=== PATIENT | male | born 1965 | race Caucasian/White ===

== ENCOUNTER 2017-02-11 14:52 | Inpatient (IN) | payer BC ==
--- NOTE | ~2017-02-11 | HP ---
History And Physical [place] [id number] [facility] [place]. [address] NAME: WADE BRUNO : 69 STATUS : ADM IN PAT#: [id number] AGE: 51 ADM/REG DATE : 02/11/17 MR#: [id number] REPORT SERV DATE: 02/12/17 DICTATED BY: HECTOR HERNANDEZ DATE: 02/11/17 REPORT STATUS : Draft TRANSCRIBED BY: MODL DATE: 02/11/17 DATE OF ADMISSION: 02/11/2017 REASON FOR ADMISSION: Hyperglycemia. HISTORY OF PRESENT ILLNESS: This is a pleasant 51-year-old obese male. He has a known history of hypertension, insulin-dependent diabetes, very uncontrolled, typically is recently in the 200 to 400 range. He even gets hypoglycemic and symptoms with a sugar less than 120, but more than 70; chronic pain; anxiety; migraine headaches; smokeless tobacco use, history of "caffeine indiscretion;" history of nephrolithiasis. SURGICAL HISTORY: Vasectomy, knee surgery, hernia repair, shoulder surgery, bilateral arm repair unclear. The patient comes in after being recently placed on NovoLog for increasing hyperglycemia, has had a two-day episode of increasing blurry vision, the sugar well over 500. Comes in here with a blood glucose of 603 on BMP, immediately was given 10 of IV insulin, sugar recheck thereafter is 355 with a normal saline at 200 mL an hour, after 500 mL bolus. The patient denies any fevers or chills. No nausea, no vomiting, no diarrhea, no chest pain, no shortness of breath. Positive blurry vision. REVIEW OF SYSTEMS: Done, see HPI. Otherwise, negative. PAST MEDICAL HISTORY: See above. PAST SURGICAL HISTORY: See above. ALLERGIES: NO KNOWN DRUG ALLERGIES. SOCIAL: Social alcohol use. No drug use. No tobacco use. PULMONARY HISTORY: Smokeless tobacco use. HOME MEDICATIONS: See MAR. Continue what is relevant as well. FAMILY HISTORY: Hypertension, at least one parent. OBJECTIVE: VITAL SIGNS: He was 199 systolic, now is 140; 112 pulse, now it is 90; 18 respirations; 98% on room air. Afebrile, temp 97.4. GENERAL: Guarded. HEENT: PERRLA. No scleral icterus. CARDIOVASCULAR: Regular rate and rhythm. No murmur. RESPIRATORY: Decreased breath sounds bibasilarly. ABDOMEN: Nontender, nondistended. Positive bowel sounds. History And Physical [address] [address] NAME: WADE BRUNO : 69 STATUS : ADM IN PAT#: [id number] AGE: 51 ADM/REG DATE : 02/11/17 MR#: [id number] REPORT SERV DATE: 02/12/17 DICTATED BY: HECTOR HERNANDEZ DATE: 02/11/17 REPORT STATUS : Draft TRANSCRIBED BY: MODL DATE: 02/11/17 EXTREMITIES: No edema. No ecchymosis. NEURO: GCS 15. A and O x4/4. LABORATORY DATA: His white count is 10.8, 15.2 hemoglobin, 318,000 platelets, 4.7 potassium, 20 bicarb, 1.66 creatinine unclear baseline, 603 sugar, after which 355 on Accu-Chek, 34 BUN, 129 sodium. Troponin is negative. We will get urinalysis, it is going to be pending for source of significant hyperglycemia and as a result, blood cultures will also be pending. CT of the brain will also be pending. EKG, he has got normal sinus rhythm. No ischemic ST-T changes. ASSESSMENT: 1. Very uncontrolled insulin-dependent diabetes, almost diabetic ketoacidosis. Would like to get an ABG or acid-base status as he has a very mild bicarb reduction to suggest acidosis. 2. Hypertensive urgency. 3. Blurry vision possibly associated with hypertensive emergency. PLAN: I will go ahead and admit this patient myself. I will place on insulin drip. Already have orders on board for which will be half-normal saline with an amp of bicarb at 125, volume repletion given borderline DKA. Get an ABG regarding acid-base status. We will also place on IV p.r.n. antihypertensives, carvedilol at this time will be given. A CT of the abdomen and pelvis regarding TABITHA. Once the sugars are less than 250 persistently for 3 hours, I will go ahead and transition the drip to subcutaneous insulin and start him on a diabetic diet. He is seen in the morning, in the interval place on D5 half normal if that were to occur. Panculture regarding SIRS criteria and etiology of significant hyperglycemia if not just progressive diabetes. See rest of my orders. All questions were answered. It took well over 60 minutes to do. Reference [facility] and [facility]. We will get CT of the brain regarding this blurry vision, but may need to have an banquet coordinator to evaluate for possible diabetic-associated retinopathy. WST/MODL Hector Hernandez DO / [id number] CC: DO Vinicio Gonzalez M.D.
--- NOTE | ~2017-02-11 | DS ---
Discharge Summary [facility] [address] [place]. [address] NAME: WADE BRUNO : 69 STATUS : DIS IN PAT#: [id number] AGE: 51 ADM/REG DATE : 02/11/17 MR#: [id number] REPORT SERV DATE: 02/15/17 DICTATED BY: ALEX LEMUS DATE: 02/14/17 REPORT STATUS : Draft TRANSCRIBED BY: MODL DATE: 02/14/17 ADMISSION DATE: 02/11/2017 DISCHARGE DATE: 02/14/2017 CONDITION ON DISCHARGE: Stable. DISPOSITION: Discharged to home. ADVICE ON DISCHARGE: To follow up with PCP within the next one-to-two weeks for uncontrolled diabetes mellitus. DIAGNOSES ON DISCHARGE: 1. Diabetes mellitus-insulin requiring. The patient does have brittle diabetes mellitus and other diagnoses that are stable and chronic, include chronic back pain, generalized anxiety disorder, and chronic migraine headaches. 2. Smokeless tobacco use. 3. History of nephrolithiasis. BRIEF HOSPITAL COURSE: The patient is a 51-year-old male patient, who was admitted with signs and symptoms as outlined in history and physical exam. The patient also was diagnosed with high blood pressure and hypertensive urgency when he came in. The patient also had blurry vision associated with hypertensive emergency and hence he was admitted with this and also uncontrolled diabetes mellitus with an A1c that came back more than 10. The patient was given IV fluids and rehydrated for the hyperosmolar hyperglycemic state, and also his blood pressure was controlled by starting him on appropriate antihypertensive medications. With this, his symptoms gradually resolved and on 02/14/2017, he insists on being discharged home, he says. He says that he feels great and is completely asymptomatic. He is able to eat his food without any nausea or vomiting. Able to ambulate without any assistance and has had a bowel movement and no problems with any urination and hence he is being discharged to home with all the home medications that will be resumed. The patient states that he has every prescription with him and he just has to go fill it. He states that he does not need any more prescriptions from me. Hence, he is being sent home on the following home medications and these include the followin. Carvedilol 6.25 mg p.o. b.i.d. 2. [place] 10/325 one p.o. four times a day p.r.n. for back pain. 3. Lopid 600 mg p.o. b.i.d. 4. Cozaar 100 mg once a day. 5. NovoLog 10 units subcutaneously with lunch. 6. Tresiba insulin 26 units subcutaneously once a day. 7. Viagra 100 mg p.o. daily p.r.n. for sexual activity. 8. Victoza 1.8 mg subcutaneously daily. 9. Lipitor 80 mg p.o. daily which is the only new medication. I have given him a prescription for Lipitor 80 mg once a day and all the other medications the patient already has with him and states that he does not need any refills. Hence, he is being sent home in stable condition after blood pressure has been controlled and diabetes Discharge Summary [address] [place]. [address] NAME: WADE BRUNO : 69 STATUS : DIS IN PAT#: [id number] AGE: 51 ADM/REG DATE : 02/11/17 MR#: [id number] REPORT SERV DATE: 02/15/17 DICTATED BY: ALEX LEMUS DATE: 02/14/17 REPORT STATUS : Draft TRANSCRIBED BY: SREEDHAR DATE: 02/14/17 has been brought under fairly good control. I have the following most recent lab results on this gentleman: CBC on the day of discharge shows a WBC of 9.1, hemoglobin 14.1, hematocrit 41.1, and platelets of 266. Electrolyte profile shows a sodium of 138, potassium 4.1, BUN 16, and creatinine 1.32. Hemoglobin A1c came back at 11.7, reflecting uncontrolled diabetes mellitus. The patient understands this and states that he will definitely adapt lifestyle changes and also try to take his medications as prescribed after getting it filled. Blood cultures during hospitalization showed no growth. Initially the patient also had a CT scan of the abdomen without contrast as the patient complained of some vague abdominal symptoms. Essentially CT scan of the abdomen showed hepatomegaly, probably fatty infiltration of the liver because of the morbid obesity that the patient has, and also bilateral multiple nonobstructing renal stones consistent with the history. Other than that, there is no mass lesion, adenopathy, or any inflammatory processes that was seen in the abdomen or pelvic area. A CT scan of the brain was obtained also as the patient appeared a little confused and this did not show any evidence of any acute abnormality or any acute stroke. The CT scan of the brain was probably also obtained because the patient complained of blurry vision and had hypertensive urgency upon admission, but essentially it was normal. The patient's procalcitonin was normal. His BNP or brain natriuretic peptide was normal, and chest x-ray showed old granulomatous disease but no acute cardiopulmonary abnormalities. Hence, he is being discharged home in stable condition on the following medications as described above and I have spent about 40 minutes in coordinating discharge care of this patient including [id number] encounter and summarizing this discharge. RRA/MODL Alex Lemus M.D. / [id number] CC: Jose Alvarado M.D.
[~2017-02-11 14:52] MED LIST: CELEXA40 MG PO; CIP2 PO; CIP5 PO; COREG6 PO; CRESTOR20 MG PO; DIOVAN40 MG PO; LOPID6 PO; MEP50TAB PO; NORCO1 TAB PO; PERCOCET1 TA2 PO; PERCOCET1 TA4 PO; PR25 PO; PT DENIES HOME MEDS; PYR200 PO; ROLAIDS PO; TESTOSTERONE INJ IM; TYLENOL PM PO; ZYDONE1 TA2 PO
[2017-02-11 15:36] LABS: BASOPHILS 0.4 %; BASOPHILS ABSOLUTE 0.04 10/3/uL (0.0-0.16); EOSINOPHILS 3.4 %; EOSINOPHILS ABSOLUTE 0.37 10/3/uL (0.0-0.53); ER CBC TAT 0 Hrs 05 Mins; HEMATOCRIT 43.3 % (40.0-51.0); HEMOGLOBIN 15.2 g/dL (13.6-17.8); IMMATURE GRANULOCYTES 1.8 %; IMMATURE GRANULOCYTES ABSOLUTE 0.19 10/3/uL (0.0-0.11); LYMPHOCYTES 17.9 %; LYMPHOCYTES ABSOLUTE 1.94 10/3/uL (0.67-4.30); MEAN CORPUS HGB CONC 35.1 g/dL (32.0-36.0); MEAN CORPUSCULAR HEMOGLOB 31.7 pg (26.0-34.0); MEAN CORPUSCULAR VOLUME 90.2 fL (80-100); MEAN PLATELET VOLUME 10.2 fL (9.2-13.0); MONOCYTES 7.8 %; MONOCYTES ABSOLUTE 0.84 10/3/uL (0.21-1.20); NEUTROPHILS 68.7 %; NEUTROPHILS ABSOLUTE 7.43 10/3/uL (2.02-8.40); PLATELET COUNT 318 10/3/uL (150-400); RBC DISTRIBUTION WIDTH 13.2 % (12.0-16.0); WHITE BLOOD CELLS 10.8 10/3/uL (4.5-10.5)
[2017-02-11 15:37] LABS: MANUAL DIFF NO %
[2017-02-11 15:43] LABS: PARTIAL THROMBO TIME 28.6 SEC (22.5-37.2); PROTIME (NOT ORD) 13.1 SEC (12.0-14.5)
[2017-02-11 15:52] LABS: BUN (BLOOD UREA NITROGEN) 34 MG/DL (6-23); CALCIUM, SERUM 8.6 MG/DL (8.5-10.4); CHEST PAIN PROFILE TAT 0 Hrs 21 Mins; CHLORIDE, SERUM 93 MMOL/L (96-112); CO2 (CARBON DIOXIDE) 22 MMOL/L (24-34); CREATININE 1.66 MG/DL (0.70-1.30); GFR AFRICAN AMERICAN 55 ML/MIN (>=60); GFR NON AFRICAN AMERICAN 48 ML/MIN (>=60); POTASSIUM, SERUM 4.7 MMOL/L (3.5-5.3); SODIUM, SERUM 129 MMOL/L (135-148); TROPONIN I <0.02 NG/ML (<0.05)
[2017-02-11 15:56] LABS: GLUCOSE, SERUM 603 MG/DL (60-99)
[2017-02-11 17:34] LABS: ASCORBIC ACID (UR NOT ORDER) NEG (NEG); BILIRUBIN, URINE NEGATIVE (NEG); ER URINALYSIS TAT 0 Hrs 12 Mins; KETONE, URINE NEGATIVE (NEG); LEUKOCYTE ESTERASE(NOT OR NEG (NEG); NITRITE (URINE) NEG (NEG); WBC (NOT ORDERED) (RFLEX) 1 (0-5)
[2017-02-11] MEDS ORDERED: COREG6 PO (17:44)
[2017-02-11] MEDS ORDERED: COZAAR100 MG PO (17:45)
[2017-02-11] MEDS ORDERED: LOPID6 PO (17:45)
[2017-02-11] MEDS ORDERED: NORCO1 TAB PO (17:45)
[2017-02-11] MEDS ORDERED: NOVOLOG SC (17:46)
[2017-02-11] MEDS ORDERED: TRESIBA FL100 UNIT/1 SC (17:46)
[2017-02-11] MEDS ORDERED: VICTOZA18 MG/3 ML SC (17:47)
[2017-02-11] MEDS ORDERED: VIAGRA100 MG PO (17:47)
[2017-02-11 17:59] LABS: BE (BASE EXCESS) -2.9 MEQ/L (0 +/- 2.5); CARBOXYHEMOGLOBIN 1.1 % (0-3); HCO3 (ACTUAL BICARBONATE) 20.6 MEQ/L (23-27); HEMOBLOGIN CONTENT 15.2 G/DL (14-18); INSTRUMENT SERIAL # 8087; METHEMOGLOBIN 0.3 % (0-3); O2 CONTENT 20.4 VOL% (18-24); PCO2 (CO2 TENSION) 33 MMHG (35-45); PO2 (O2 TENSION) 88 MMHG (79-93); pH 7.42 (7.37-7.43)
[2017-02-11 18:00] LABS: ALLENS TEST Pos; SAMPLE Arterial
[2017-02-11 21:34] LABS: BASOPHILS 0.7 %; BASOPHILS ABSOLUTE 0.08 10/3/uL (0.0-0.16); EOSINOPHILS 4.4 %; EOSINOPHILS ABSOLUTE 0.48 10/3/uL (0.0-0.53); HEMATOCRIT 43.9 % (40.0-51.0); HEMOGLOBIN 15.3 g/dL (13.6-17.8); IMMATURE GRANULOCYTES 2.2 %; IMMATURE GRANULOCYTES ABSOLUTE 0.24 10/3/uL (0.0-0.11); LYMPHOCYTES 26.2 %; LYMPHOCYTES ABSOLUTE 2.89 10/3/uL (0.67-4.30); MANUAL DIFF NO %; MEAN CORPUS HGB CONC 34.9 g/dL (32.0-36.0); MEAN CORPUSCULAR HEMOGLOB 31.2 pg (26.0-34.0); MEAN CORPUSCULAR VOLUME 89.6 fL (80-100); MEAN PLATELET VOLUME 9.7 fL (9.2-13.0); MONOCYTES 8.9 %; MONOCYTES ABSOLUTE 0.98 10/3/uL (0.21-1.20); NEUTROPHILS 57.6 %; NEUTROPHILS ABSOLUTE 6.34 10/3/uL (2.02-8.40); PLATELET COUNT 286 10/3/uL (150-400); RBC DISTRIBUTION WIDTH 13.3 % (12.0-16.0)
[2017-02-11 22:01] LABS: PHOSPHORUS, SERUM 3.9 MG/DL (2.5-4.5)
[2017-02-11 22:03] LABS: PROCALCITONIN 0.27 ng/mL (<0.5); ULTRASENSITIVE TSH 1.15 MCIU/ML (0.358-3.740)
[2017-02-12 06:43] LABS: HEMATOCRIT 41.5 % (40.0-51.0); HEMOGLOBIN 14.3 g/dL (13.6-17.8); MEAN CORPUS HGB CONC 34.5 g/dL (32.0-36.0); MEAN CORPUSCULAR HEMOGLOB 31.2 pg (26.0-34.0); MEAN CORPUSCULAR VOLUME 90.4 fL (80-100); MEAN PLATELET VOLUME 10.2 fL (9.2-13.0); PLATELET COUNT 277 10/3/uL (150-400); RBC DISTRIBUTION WIDTH 13.8 % (12.0-16.0); RED CELL COUNT 4.59 10/6/uL (4.7-6.1); WHITE BLOOD CELLS 10.4 10/3/uL (4.5-10.5)
[2017-02-12 06:45] LABS: MANUAL DIFF YES %
[2017-02-12 06:54] LABS: CALCIUM, SERUM 9.1 MG/DL (8.5-10.4); CHLORIDE, SERUM 102 MMOL/L (96-112); CREATININE 1.23 MG/DL (0.70-1.30); GFR AFRICAN AMERICAN 79 ML/MIN (>=60); GFR NON AFRICAN AMERICAN 69 ML/MIN (>=60); PHOSPHORUS, SERUM 3.9 MG/DL (2.5-4.5); POTASSIUM, SERUM 3.8 MMOL/L (3.5-5.3)
[2017-02-12 06:55] LABS: BUN (BLOOD UREA NITROGEN) 24 MG/DL (6-23); CO2 (CARBON DIOXIDE) 27 MMOL/L (24-34); GLUCOSE, SERUM 213 MG/DL (60-99); SODIUM, SERUM 138 MMOL/L (135-148)
[2017-02-12 07:36] LABS: BAND NEUTROPHILS 1 %; EOSINOPHILS 2 %; EOSINOPHILS ABSOLUTE (CALC) 0.21 10/3/uL (0.0-0.53); LYMPHOCYTES 25 %; MONOCYTES 11 %; MONOCYTES ABSOLUTE (CALC) 1.14 10/3/uL (0.21-1.20); NEUTROPHILS ABSOLUTE (CALC) 6.45 10/3/uL (2.02-8.40); PLATELET ESTIMATE ADQ (ADEQUATE); RBC MORPHOLOGY NORM (NORMAL); SEGMENTED NEUTROPHIL (0) 61 %; TOTAL NUCLEATED CELLS 100
[2017-02-13 06:28] LABS: CHLORIDE, SERUM 100 MMOL/L (96-112); CO2 (CARBON DIOXIDE) 27 MMOL/L (24-34); GFR AFRICAN AMERICAN 102 ML/MIN (>=60); GFR NON AFRICAN AMERICAN 88 ML/MIN (>=60); GLUCOSE, SERUM 176 MG/DL (60-99); MEAN CORPUS HGB CONC 34.9 g/dL (32.0-36.0); MEAN CORPUSCULAR HEMOGLOB 31.7 pg (26.0-34.0); MEAN CORPUSCULAR VOLUME 90.8 fL (80-100); MEAN PLATELET VOLUME 9.7 fL (9.2-13.0); PHOSPHORUS, SERUM 3.2 MG/DL (2.5-4.5); PLATELET COUNT 209 10/3/uL (150-400); POTASSIUM, SERUM 3.6 MMOL/L (3.5-5.3); RBC DISTRIBUTION WIDTH 13.5 % (12.0-16.0); SODIUM, SERUM 136 MMOL/L (135-148); WHITE BLOOD CELLS 6.7 10/3/uL (4.5-10.5)
[2017-02-13 06:32] LABS: BUN (BLOOD UREA NITROGEN) 17 MG/DL (6-23); CALCIUM, SERUM 7.3 MG/DL (8.5-10.4)
[2017-02-13 06:51] LABS: HEMATOCRIT 30.7 % (40.0-51.0); HEMOGLOBIN 10.7 g/dL (13.6-17.8); MANUAL DIFF YES %; RED CELL COUNT 3.38 10/6/uL (4.7-6.1)
[2017-02-13 07:50] LABS: EOSINOPHILS 3 %; IMMATURE GRANS ABSOLUTE (CALC) 0.13 10/3/uL (0.0-0.11); LYMPHOCYTES 20 %; LYMPHOCYTES ABSOLUTE (CALC) 1.34 10/3/uL (0.67-4.30); METAMYELOCYTES 2 %; MONOCYTES 4 %; MONOCYTES ABSOLUTE (CALC) 0.27 10/3/uL (0.21-1.20); NEUTROPHILS ABSOLUTE (CALC) 4.76 10/3/uL (2.02-8.40); PLATELET ESTIMATE ADQ (ADEQUATE); RBC MORPHOLOGY NORM (NORMAL); SEGMENTED NEUTROPHIL (0) 71 %; TOTAL NUCLEATED CELLS 100
[2017-02-14 06:08] LABS: BASOPHILS 0.3 %; BASOPHILS ABSOLUTE 0.03 10/3/uL (0.0-0.16); EOSINOPHILS 4.5 %; EOSINOPHILS ABSOLUTE 0.41 10/3/uL (0.0-0.53); IMMATURE GRANULOCYTES 1.8 %; IMMATURE GRANULOCYTES ABSOLUTE 0.16 10/3/uL (0.0-0.11); LYMPHOCYTES 24.7 %; LYMPHOCYTES ABSOLUTE 2.24 10/3/uL (0.67-4.30); MEAN CORPUS HGB CONC 34.3 g/dL (32.0-36.0); MEAN CORPUSCULAR HEMOGLOB 31.3 pg (26.0-34.0); MEAN CORPUSCULAR VOLUME 91.3 fL (80-100); MEAN PLATELET VOLUME 10.2 fL (9.2-13.0); MONOCYTES 9.9 %; NEUTROPHILS 58.8 %; NEUTROPHILS ABSOLUTE 5.32 10/3/uL (2.02-8.40); PLATELET COUNT 266 10/3/uL (150-400); RBC DISTRIBUTION WIDTH 13.5 % (12.0-16.0); WHITE BLOOD CELLS 9.1 10/3/uL (4.5-10.5)
[2017-02-14 06:09] LABS: HEMATOCRIT 41.1 % (40.0-51.0); HEMOGLOBIN 14.1 g/dL (13.6-17.8); MANUAL DIFF NO %
[2017-02-14 06:24] LABS: BUN (BLOOD UREA NITROGEN) 16 MG/DL (6-23); CALCIUM, SERUM 8.7 MG/DL (8.5-10.4); CHLORIDE, SERUM 104 MMOL/L (96-112); CO2 (CARBON DIOXIDE) 25 MMOL/L (24-34); CREATININE 1.32 MG/DL (0.70-1.30); GFR AFRICAN AMERICAN 73 ML/MIN (>=60); GFR NON AFRICAN AMERICAN 63 ML/MIN (>=60); GLUCOSE, SERUM 248 MG/DL (60-99); PHOSPHORUS, SERUM 3.8 MG/DL (2.5-4.5); POTASSIUM, SERUM 4.1 MMOL/L (3.5-5.3); SODIUM, SERUM 138 MMOL/L (135-148)
[2017-02-14] MEDS ORDERED: CRESTOR40 MG PO (10:00)
== END 2017-02-14 10:59 | disposition home or self-care (01) | DRG 638 ==
LOC: ER 14:52 → 6NO 17:12
PROVIDERS: Emergency Medicine; Internal Medicine
DX: E11.00 Type 2 diabetes mellitus with hyperosmolarity without nonketotic hyperglycemic-hyperosmolar coma (NKHHC) (principal); N17.9 Acute kidney failure, unspecified; E11.649 Type 2 diabetes mellitus with hypoglycemia without coma; I16.1 Hypertensive emergency; F17.290 Nicotine dependence, other tobacco product, uncomplicated; Z87.442 Personal history of urinary calculi; I16.0 Hypertensive urgency; G89.29 Other chronic pain; Z79.4 Long term (current) use of insulin; Z82.49 Family history of ischemic heart disease and other diseases of the circulatory system; Z88.0 Allergy status to penicillin; F41.9 Anxiety disorder, unspecified; E66.9 Obesity, unspecified; Z68.36 Body mass index [BMI] 36.0-36.9, adult
CPT/HCPCS: 36600; 70450; 71010; 74176; 80048; 81001; 82805; 82962; 83036; 83735; 83880; 84100; 84145; 84443; 84484; 85025; 85610; 85730; 87040; 87449; 93005; 96374; 99285; A9270-GY; J1170

== ENCOUNTER 2017-02-21 14:29 | Inpatient (IN) | payer BC ==
--- NOTE | ~2017-02-21 | HP ---
History And Physical [place] [address] [facility] [place]. [address] NAME: WADE BRUNO : 69 STATUS : ADM IN PAT#: [id number] AGE: 51 ADM/REG DATE : 02/21/17 MR#: [id number] REPORT SERV DATE: 02/21/17 DICTATED BY: DIMA MORAES DATE: 02/21/17 REPORT STATUS : Draft TRANSCRIBED BY: MODL DATE: 02/21/17 DATE OF ADMISSION: 02/21/2017 CHIEF COMPLAINT: Elevated blood sugar. HISTORY OF PRESENT ILLNESS: The patient is a 51-year-old male. He was here recently from 02/12/2017, to 02/15/2017, for elevated blood sugar. He was placed back on his previous medications which were Tresiba, NovoLog with lunch, and he was told to hold his Victoza. He continued to have elevated blood sugars on his followup appointment with his PCP today, it was over 500 in the office, he was sent here for evaluation and treatment. He states that he has had no significant change in his activity, change in his diet, change in his status since his last hospitalization, symptoms he has been complaining mostly of blurred vision. He has seen a primary special educator. He feels he is doing reasonably well with his diet. He just feels his insulin needs to be more consistent through the day to fully cover his intake through the day which certainly seems reasonable. PAST MEDICAL HISTORY: Also significant for hypertension and recurrent kidney stones. He has a history of chronic pain and anxiety also. PAST SURGICAL HISTORY: Vasectomy, knee surgery, hernia repair, shoulder surgery, and bilateral arm repair. CURRENT MEDICATIONS: Pharmacy list is pending at discharge. He was on Coreg 6.25 b.i.d., [place] 10/325 q.i.d., Lopid 600 b.i.d., Cozaar 100, NovoLog Pen with lunch, Tresiba 26 daily, Viagra 100, Victoza 1.8, and Lipitor 80. ALLERGIES: NONE. FAMILY HISTORY: A parent with hypertension. SOCIAL HISTORY: Social alcohol. No tobacco. REVIEW OF SYSTEMS: HEENT: Positive for blurred vision. CARDIOVASCULAR: No chest pain or palpitations. PULMONARY: No shortness of breath. GI: No nausea or vomiting. : No dysuria, frequency, or urgency. NEUROMUSCULOSKELETAL: Positive for his chronic pain, otherwise 14-point review of systems is negative. PHYSICAL EXAMINATION: VITAL SIGNS: Currently pending. His blood sugar was 347 by fingerstick. GENERAL: He is awake, alert, and oriented. HEENT: Normocephalic, atraumatic. Sclerae nonicteric. NECK: Supple. HEART: Regular rate and rhythm. No murmurs, gallops, or rubs. LUNGS: Clear to auscultation without rhonchi, rales, or wheezes. History And Physical [address] [address] NAME: WADE BRUNO : 69 STATUS : ADM IN [facility]#: [id number] AGE: 51 ADM/REG DATE : 02/21/17 MR#: [id number] REPORT SERV DATE: 02/21/17 DICTATED BY: DIMA MORAES DATE: 02/21/17 REPORT STATUS : Draft TRANSCRIBED BY: MODL DATE: 02/21/17 ABDOMEN: Obese. Benign. EXTREMITIES: No significant clubbing, cyanosis, or edema. No significant clubbing, cyanosis, or edema. NEUROLOGIC: Grossly nonfocal. LAB: None to review. ASSESSMENT: 1. Diabetes with suspected hyperglycemia. 2. Hypertension. 3. Chronic medical problems listed above. PLAN: The patient has been admitted. We will check a BMP to note electrolytes and bicarb and to rule out any DKA. We will await his blood pressure numbers as apparently it was somewhat hypertensive on presentation. We will review his pharmacy list when available. I do believe the patient will need sliding scale insulin more than once per day. We will initiate that here. Further recommendations pending his labs and vitals. TLF/MODL Dima Moraes M.D. / [id number] CC: Jose Hester M.D.
--- NOTE | ~2017-02-21 | DS ---
Discharge Summary [facility] [address] [place]. [address] NAME: WADE BRUNO : 69 STATUS : ADM IN PAT#: [id number] AGE: 51 ADM/REG DATE : 02/21/17 MR#: [id number] REPORT SERV DATE: 02/22/17 DICTATED BY: RADHA MORAES DATE: 02/22/17 REPORT STATUS : Draft TRANSCRIBED BY: MODL DATE: 02/22/17 ADMISSION DATE: 02/21/2017 DISCHARGE DATE: 02/22/2017 FINAL HOSPITAL DIAGNOSES: 1. Elevated blood sugar. 2. Hypertension. 3. History of kidney stones. CONSULTATIONS: None. PROCEDURES: None. CURRENT PHYSICAL FINDINGS AND HISTORY OF PRESENT ILLNESS: Please see dictated H and P by myself. In brief, the patient is a 51-year-old male, who returns for repeat hospitalization for difficult to control blood sugars. At last hospitalization, he was discharged on one time per day sliding scale; however, the patient's blood sugars remain elevated. He presented here for further stabilization of his blood pressures. HOSPITAL COURSE: Initial vital signs, blood pressure was 127/93. No fever during his hospital stay. Otherwise, vitals were stable. Lab work showed when he presented, the BMP with a CO2 of 22, normalizing to 20 for the following day, and a creatinine of 1.32 normalized to 1.14 the following day, sodium 135, normalizing to 142 within 24 hours. His presenting blood sugar was 323, subsequent numbers have been much improved. He had a slight leukocytosis, it was felt secondary to hyperglycemia as he has had no fever or other infectious symptoms. A urinalysis was negative. [facility] to his home medicine Tresiba. He is also placed on three times a day sliding scale. Blood sugar is average less than 200. He had no other symptoms, responded to IV fluids and improved glycemic control. He was felt stable for discharge. DISPOSITION: He is discharged home. MEDICATIONS: Coreg 6.25 b.i.d., Lopid 600 b.i.d., sliding scale level 2 with meals, Tresiba 26 at bedtime, Cozaar 100, hydrocodone 10/325, Viagra 100, Crestor 40. FOLLOWUP: We will ask him to follow up with his PCP in 7 to 14 days. TLF/MODL Radha Moraes M.D. / [id number] Discharge Summary [address] [address] NAME: BRUNOWADE Fausto : 69 STATUS : ADM IN PAT#: [id number] AGE: 51 ADM/REG DATE : 02/21/17 MR#: [id number] REPORT SERV DATE: 02/22/17 DICTATED BY: RADHA MORAES DATE: 02/22/17 REPORT STATUS : Draft TRANSCRIBED BY: CATRACHOL DATE: 02/22/17 CC: Jose Hester M.D.
[~2017-02-21 14:29] MED LIST changes: +COZAAR100 MG PO; +CRESTOR40 MG PO; +NOVOLOG SC; +TRESIBA FL100 UNIT/1 SC; +VIAGRA100 MG PO; +VICTOZA18 MG/3 ML SC
[2017-02-21 16:16] LABS: BASOPHILS 0.4 %; BASOPHILS ABSOLUTE 0.06 10/3/uL (0.0-0.16); EOSINOPHILS 1.6 %; EOSINOPHILS ABSOLUTE 0.24 10/3/uL (0.0-0.53); HEMOGLOBIN 15.9 g/dL (13.6-17.8); IMMATURE GRANULOCYTES 1.1 %; IMMATURE GRANULOCYTES ABSOLUTE 0.16 10/3/uL (0.0-0.11); LYMPHOCYTES 16.8 %; LYMPHOCYTES ABSOLUTE 2.54 10/3/uL (0.67-4.30); MEAN CORPUS HGB CONC 34.8 g/dL (32.0-36.0); MEAN CORPUSCULAR HEMOGLOB 31.1 pg (26.0-34.0); MEAN CORPUSCULAR VOLUME 89.4 fL (80-100); MEAN PLATELET VOLUME 10.2 fL (9.2-13.0); MONOCYTES 7.8 %; MONOCYTES ABSOLUTE 1.17 10/3/uL (0.21-1.20); NEUTROPHILS 72.3 %; NEUTROPHILS ABSOLUTE 10.91 10/3/uL (2.02-8.40); RBC DISTRIBUTION WIDTH 13.3 % (12.0-16.0); RED CELL COUNT 5.11 10/6/uL (4.7-6.1)
[2017-02-21 16:17] LABS: HEMATOCRIT 45.7 % (40.0-51.0); MANUAL DIFF NO %; PLATELET COUNT 371 10/3/uL (150-400); WHITE BLOOD CELLS 15.1 10/3/uL (4.5-10.5)
[2017-02-21 16:32] LABS: A/G RATIO 0.9 (0.7-1.9); CHLORIDE, SERUM 101 MMOL/L (96-112); CO2 (CARBON DIOXIDE) 22 MMOL/L (24-34); CREATININE 1.32 MG/DL (0.70-1.30); GFR AFRICAN AMERICAN 73 ML/MIN (>=60); GFR NON AFRICAN AMERICAN 63 ML/MIN (>=60); GLOBULIN 4.3 G/DL (2.5-4.1); POTASSIUM, SERUM 4.5 MMOL/L (3.5-5.3); SGOT(AST) 26 U/L (5-40); SGPT(ALT) 43 U/L (5-65); SODIUM, SERUM 135 MMOL/L (135-148); TOTAL BILIRUBIN 0.3 MG/DL (0-1.2); TOTAL PROTEIN 8.3 G/DL (6.0-8.5)
[2017-02-21 16:35] LABS: ALKALINE PHOSPHATASE 117 U/L (45-117); BUN (BLOOD UREA NITROGEN) 25 MG/DL (6-23); CALCIUM, SERUM 9.8 MG/DL (8.5-10.4); GLUCOSE, SERUM 323 MG/DL (60-99)
[2017-02-21 18:39] LABS: ASCORBIC ACID (UR NOT ORDER) NEG (NEG); BILIRUBIN, URINE NEGATIVE (NEG); KETONE, URINE NEGATIVE (NEG); LEUKOCYTE ESTERASE(NOT OR NEG (NEG); WBC (NOT ORDERED) (RFLEX) < 1 (0-5)
[2017-02-22 06:36] LABS: CHLORIDE, SERUM 107 MMOL/L (96-112); CO2 (CARBON DIOXIDE) 24 MMOL/L (24-34); CREATININE 1.14 MG/DL (0.70-1.30); GFR AFRICAN AMERICAN 87 ML/MIN (>=60); GFR NON AFRICAN AMERICAN 75 ML/MIN (>=60); POTASSIUM, SERUM 4.5 MMOL/L (3.5-5.3)
[2017-02-22 06:38] LABS: BUN (BLOOD UREA NITROGEN) 18 MG/DL (6-23); GLUCOSE, SERUM 183 MG/DL (60-99); SODIUM, SERUM 142 MMOL/L (135-148)
[2017-02-22] MEDS ORDERED: NOVOLOG (19:19)
== END 2017-02-22 22:42 | disposition home or self-care (01) | DRG 639 ==
LOC: 4SO 14:29
PROVIDERS: Internal Medicine
DX: E11.65 Type 2 diabetes mellitus with hyperglycemia (principal); I10 Essential (primary) hypertension; Z79.4 Long term (current) use of insulin; Z79.891 Long term (current) use of opiate analgesic; Z87.442 Personal history of urinary calculi
CPT/HCPCS: 80048; 80053; 81001; 82962; 83735; 85025; A9270-GY